=== PATIENT | male | born 1985 ===

== ENCOUNTER 2023-11-03 15:06 | Outpatient (CLI) | payer OTHER, SELFPAY ==
--- NOTE | ~2023-11-03 | MR_ITS ---
EXAMINATION: MR ankle LT wo con DATE: 11/03/2023 16:10 INDICATION: Chronic left ankle pain TECHNIQUE: Magnetic resonance imaging (MRI) of the left ankle was performed without intravenous contr ast. Sequences included sagittal, coronal, and axial proton-density weighted fast spin echo without a nd with fat saturation. COMPARISON: None. FINDINGS: Medial ankle ligaments: Deep and superficial deltoid ligaments as well as the spring ligament are normal. Lateral ankle ligaments: The anterior and posterior inferior tibiofibular ligaments are normal. The anterior talofibular, calc aneofibular and posterior talofibular ligaments are normal. Tendons: Tiny enthesophytes and enthesopathic ossicles at the calcaneal insertion of the distal Achilles tendo n. The peroneus longus and brevis tendons are normal. The tibialis anterior and extensor hallucis wilson gustavo and extensor digitorum longus tendons are normal. The tibialis posterior, flexor digitorum longus and flexor hallucis longus tendons are normal. Plantar fascia: Plantar aponeurosis is normal. Bones/other: There is mild marrow edema at the dorsolateral aspect of the anterior process of the calcaneus and ju xtaposed dorsal lateral margin of the lateral cuboid. There is thickening of the bifurcate (calcaneoc uboid and calcaneonavicular) ligament and the dorsal calcaneocuboid ligament, both with very small he terotopic ossicles consistent with sequela of chronic sprain. There is mild surrounding soft tissue e yesenia including the proximal aspect of the extensor digitorum brevis muscle which suggests either rece nt recurrent ligament sprain, muscle strain or combination thereof. The Lisfranc ligament complex is normal. Fluid: Physiologic amount fluid in the joint spaces. No bursitis, tenosynovitis or other abnormal fluid angeles ections. IMPRESSION: 1. Thickening and heterotopic ossification at the dorsal calcaneocuboid and bifurcate ligaments consi stent with chronic partial tears. Overlying mild soft tissue edema including of the proximal extensor digitorum brevis muscle which could represent either recurrent low-grade ligament sprain, muscle str ain or combination thereof. Reviewed, dictated and finalized at location B. IMPRESSION: 1. Thickening and heterotopic ossification at the dorsal calcaneocuboid and bif urcate ligaments consistent with chronic partial tears. Overlying mild soft tis michele edema including of the proximal extensor digitorum brevis muscle which coul d represent either recurrent low-grade ligament sprain, muscle strain or combin ation thereof.
== END 2023-11-03 15:07 ==
PROVIDERS: PCP Orthopaedic Surgery; Visit Provider Orthopaedic Surgery
DX: R60.0 Localized edema (principal); G89.29 Other chronic pain
CPT/HCPCS: 73721